=== PATIENT | male | born 1995 | race Caucasian/White ===

== ENCOUNTER 2019-05-12 10:18 | Emergency (ER) | payer OTHER, SELFPAY ==
[2019-05-12 10:22] VITALS: BP 124/82; PULSE 91; RESP 18; TEMP 37; O2SAT 97
--- NOTE | 2019-05-12 10:35 | ED.GENADULT ---
HPI - General Adult General Chief complaint: Nausea/Vomiting/Diarrhea Stated complaint: nausea fever ache Time Seen by Provider: 05/12/19 10:36 Source: patient and RN notes reviewed Mode of arrival: ambulatory Limitations: no limitations History of Present Illness HPI narrative: 24-year-old male with complaints of upper respiratory infection symptoms, congestion, and cough for 2 days. No treatment. Symptoms increased over the past 24 hours with nausea, vomiting, and diarrhea without abdominal pain. Emesis X2 on the night of 05/11/2019 without blood or coffee ground contents none today. Diarrhea soft brown stool X2 on the night of 05/11/2019 without blood, none today. Dry cough with intermittent productive cough (dark phlegm). Rhinorrhea and nasal congestion. Exacerbating factors consist of smoke exposure. No high fevers or chills. No abdominal pain or cramping. Denies chest pain, dyspnea, coughing up blood, difficulty swallowing, jaw pain, dental pain, facial pain, foreign body sensation, and rash. Remains active. Tolerating po intake. Some parts of this dictation were generated by voice recognition software and may contain typographical and/or grammatical inaccuracies. Related Data Allergies Allergy/AdvReac Type Severity Reaction Status Date / Time Penicillins Allergy Unknown Rash Verified 05/12/19 10:26 Review of Systems Review of Systems: Narrative: CONSTITUTIONAL: Denies fever, chills, sweats. EYES: Denies visual changes, redness, discharge. ENT: Complains of rhinorrhea, congestion, LT otalgia. Denies sore throat. CARDIOVASCULAR: Denies chest pain, palpitations, edema. RESPIRATORY: Denies dyspnea, wheezing. Complains of dry cough/intermittent productive. GASTROINTESTINAL: Denies abdominal pain. Complains of nausea, vomiting, diarrhea. GENITOURINARY: Denies dysuria, hematuria, abnormal discharge SKIN: Denies rash or itching. MUSCULOSKELETAL: Denies acute back pain, joint pain. Complains of myalgia. NEUROLOGIC: Denies numbness or focal weakness. PSYCHIATRIC: Denies anxiety or depression. All systems reviewed & are unremarkable except as noted in HPI and below PMFSH Past Medical History Medical History (Updated 05/12/19 @ 10:53 by JEREMIE Leggett) No significant past medical history Surgical History Surgical History (Updated 05/12/19 @ 10:53 by JEREMIE Leggett) No significant past surgical history Family History Family History (Updated 05/12/19 @ 10:54 by JEREMIE Leggett) Other No significant family history Social History Social History (Updated 05/12/19 @ 10:55 by JEREMIE Leggett) Smoking packs per day: 1 Smoking cigarettes per day: 20.0 Years smoked: 3 Smoking pack-years: 3.00 Smoking status: Current every day smoker Tobacco type: cigarettes Alcohol intake: current Alcohol use details: Occasionally Substance use type: marijuana Living arrangements: with family Additional living arrangements comments: Girlfriend and child Occupation/Education: occupation Gender identity (if verbalized by the patient): Male Comments At time of signature, agree with nurse past medical, surgical, social, and family history. There is no relevant family history pertinent to the presenting complaint. Exam Narrative: Exam Narrative: GENERAL: This is a well-nourished, well-developed patient, in no apparent distress. Speaks in full sentences and ambulates with steady gait without dyspnea. HEAD: normocephalic, atraumatic. EYES: PERRL. Sclera clear/white. Vision is grossly intact. EARS: External ears normal, auditory canals clear and without drainage, TMs normal without perforation. Hearing grossly intact. NOSE: External nose normal with no obvious nasal discharge, nares with mild redness and enlarged turbinates, clear rhinorrhea. THROAT: Mucous membranes moist, posterior pharynx with PND, mild erythema, LT small white tonsil stone, no exudate. Tonsils norm
== END 2019-05-12 10:58 | disposition home or self-care (01) ==
PROVIDERS: Emergency Provider Nurse Practitioner Family
DX: B34.9 Viral infection, unspecified (principal); R11.2 Nausea with vomiting, unspecified
CPT/HCPCS: 87804; 99213; G0463

== ENCOUNTER 2020-09-14 09:00 | Emergency (ER) | payer OTHER, SELFPAY ==
[2020-09-14 09:06] VITALS: BP 134/85; PULSE 96; RESP 16; TEMP 37; O2SAT 99
--- NOTE | 2020-09-14 09:33 | ED.GENADULT ---
HPI - General Adult General Chief complaint: Upper Respiratory Infection Stated complaint: Sore Throat Time Seen by Provider: 09/14/20 09:33 Source: patient and RN notes reviewed Mode of arrival: ambulatory Limitations: no limitations History of Present Illness HPI narrative: 25-year-old male presents with complaints of upper respiratory symptoms and sore throat for the past 2 days. ?Navarro reports increasing sore throat throughout the night. Tylenol was taken last this morning with little relief. ?No high fevers, drooling, neck or throat swelling. ?Pain is bilateral. ?Hurts to swallow. ?Exacerbation factors consist of eating and drinking. ?Rhinorrhea and nasal congestion. ?No voice change. ?Cough without chest congestion. ?No nausea, vomiting, or abdominal pain. ?Tolerating liquids well. ?Denies dyspnea, difficulty swallowing, jaw pain, dental pain, facial pain, foreign body sensation, and rash. ?Remains active. ?The patient reports he has not been diagnosed with COVID-19. The patient reports he is not waiting for the results of a COVID-19 lab test. ?The patient reports he does not have chills, weakness, or fatigue. ?The patient reports he does not have any loss of taste or smell and diarrhea. ?Recently travelled to [place] over the past 2 weeks. ?Denies concerns for COVID-19 or exposures. ?At this time, the patient is not suspected of having COVID-19. Some parts of this dictation were generated by voice recognition software and may contain typographical and/or grammatical inaccuracies. Related Data Allergies Allergy/AdvReac Type Severity Reaction Status Date / Time Penicillins Allergy Unknown Rash Verified 09/14/20 09:21 Review of Systems Review of Systems: Narrative: CONSTITUTIONAL: Denies fever, chills, sweats. EYES: Denies visual changes, redness, discharge. ENT: Denies otalgia. Complains of sore throat, rhinorrhea, congestion. CARDIOVASCULAR: Denies chest pain, palpitations, edema. RESPIRATORY: Denies dyspnea, wheezing. Complaints of cough. GASTROINTESTINAL: Denies abdominal pain, nausea, vomiting, diarrhea. GENITOURINARY: Denies dysuria, hematuria, abnormal discharge. SKIN: Denies rash or itching. MUSCULOSKELETAL: Denies acute back pain, joint pain, or myalgia. NEUROLOGIC: Denies numbness or focal weakness. PSYCHIATRIC: Denies anxiety or depression. All systems reviewed & are unremarkable except as noted in HPI and below. [facility] Past Medical History Medical History No significant past medical history Surgical History Surgical History No significant past surgical history Family History Family History (Updated 09/14/20 @ 09:44 by JEREMIE Leggett) Mother No significant family history Alive and well Father Alive and well Social History Social History (Updated 09/14/20 @ 09:45 by JEREMIE Leggett) Smoking packs per day: 1 Smoking cigarettes per day: 20.0 Years smoked: 34 Smoking pack-years: 34.00 Smoking status: Current every day smoker Tobacco type: cigarettes Second hand tobacco smoke exposure: Yes Alcohol intake: current Substance use: current Substance use type: marijuana Living arrangements: with family Additional living arrangements comments: Girlfriend and child Occupation/Education: occupation Gender identity (if verbalized by the patient): Male Sexual Orientation (if Verbalized by the Patient): Straight or Heterosexual Comments At time of signature, agree with the nurse past medical, surgical, social, and family history. There is no relevant family history pertinent to the presenting complaint. Exam Narrative: Exam Narrative: GENERAL: This is a well-nourished, well-developed patient, in no apparent distress. Speaks in full sentences without deficits and ambulates with steady gait without dyspnea. HEAD: Normocephalic, atraumatic. EY
== END 2020-09-14 09:54 | disposition home or self-care (01) ==
PROVIDERS: Emergency Provider Nurse Practitioner Family
DX: J00 Acute nasopharyngitis [common cold] (principal); J01.90 Acute sinusitis, unspecified; Z20.822 Contact with and (suspected) exposure to COVID-19; F17.210 Nicotine dependence, cigarettes, uncomplicated
CPT/HCPCS: 87081; 87147; 87880; 99213; G0463

== ENCOUNTER 2020-11-19 12:50 | Emergency (ER) | payer OTHER, SELFPAY ==
--- NOTE | ~2020-11-19 | XR_ITS ---
EXAMINATION: XR hand RT min 3V DATE: 11/19/2020 13:26 INDICATION: Right hand injury. TECHNIQUE: 3 views of right hand were obtained. COMPARISON: None. FINDINGS: Bone alignment is normal. There are bone fragments at the dorsal aspect of the fifth carpom etacarpal joint. Joint spaces are normal. IMPRESSION: 1. Bone fragments at the dorsal aspect of the fifth carpometacarpal joint, likely acute fractures. Reviewed, dictated and finalized at location B. IMPRESSION: 1. Bone fragments at the dorsal aspect of the fifth carpometacarpal joint, like ly acute fractures.
[2020-11-19 13:05] VITALS: BP 124/61; PULSE 91; RESP 20; TEMP 37.4; O2SAT 99
--- NOTE | 2020-11-19 13:12 | ED.UPPEXIN ---
HPI - Extremity Injury (Upper) General Chief Complaint: Extremity Injury, Upper Stated Complaint: right hand injury Time Seen by Provider: 11/19/20 12:51 Source: patient Mode of arrival: ambulatory Limitations: no limitations History of Present Illness HPI narrative: 25-year-old male presents to [facility] with complaints of pain and swelling to dorsal aspect of his right hand after punching a refrigerator last evening at his home. Patient has not tried taking any [id number] medications for symptoms. Patient denies numbness, tingling, erythema or bruising. MD complaint: injury to: right and hand Onset (ago): hour(s) (12) Handedness: right Place: home Relieving factors: none Exacerbating factors: movement of extremity Context: direct blow Associated symptoms: denies other symptoms Related Data Home Medications Medication Instructions Recorded Confirmed No Home Medications 11/19/20 11/19/20 Allergies Allergy/AdvReac Type Severity Reaction Status Date / Time Penicillins Allergy Unknown Rash Verified 11/19/20 13:13 Review of Systems Constitutional: Constitutional: Denies chills, Denies fever(s) and Denies weakness ENT: Denies sore throat Cardiovascular: Cardiovascular: Denies chest pain, Denies rapid heart rate, Denies radiating jaw, neck or arm pain and Denies slow heart rate Respiratory: Respiratory: Denies cough and Denies dyspnea Musculoskeletal: Comments: Pain and swelling to dorsal aspect of right hand Integumentary/Breasts: Skin/Breast: Denies rash PMFSH Past Medical History Medical History No significant past medical history Surgical History Surgical History No significant past surgical history Family History Family History Mother No significant family history Alive and well Father Alive and well Social History Social History Smoking packs per day: 1 Smoking cigarettes per day: 20.0 Years smoked: 34 Smoking pack-years: 34.00 Smoking status: Current every day smoker Tobacco type: cigarettes Second hand tobacco smoke exposure: Yes Alcohol intake: current Alcohol use details: Occasionally Substance use: current Substance use type: marijuana Additional living arrangements comments: Girlfriend and child Gender identity (if verbalized by the patient): Male Comments At time of signature, I agree with nursing past medical, surgical, social and family history. There is no relevant family history pertinent to the presenting complaint. Exam Const: General: healthy appearing and no acute distress Orientation/consciousness: patient oriented x3 Resp: Effort & Inspection: normal respiratory effort Auscultation: clear to auscultation bilaterally Cardio: Rate: regular rate Rhythm: regular rhythm and regular rhythm Skin: General skin exam: normal color Rashes: no rashes Wounds: no wounds Neuro: General: patient oriented x3 and moves all extremities Extrem: Other: Moderate pain and swelling noted to dorsal aspect of right hand. There is no bruising, erythema or open wounds noted Psych: Mental Status: mental status grossly normal Affect: normal affect Attitude: cooperative Course Vital Signs Vital signs: Vital Signs Temperature 37.4 C 11/19/20 13:05 Pulse Rate 91 11/19/20 13:05 Respiratory Rate 20 11/19/20 13:05 Blood Pressure 124/61 11/19/20 13:05 Pulse Oximetry 99 11/19/20 13:05 Temperature 37.4 C 11/19/20 13:05 Pulse Rate 91 11/19/20 13:05 Respiratory Rate 20 11/19/20 13:05 Blood Pressure 124/61 11/19/20 13:05 Pulse Oximetry 99 11/19/20 13:05 MDM - Extremity Injury (Upper) Imaging Data Radiologist's impression: Fracture of right hand per radiologist Discharge Plan Discharge Cl
== END 2020-11-19 14:02 | disposition home or self-care (01) ==
PROVIDERS: Emergency Provider Nurse Practitioner Family
DX: S62.101A Fracture of unspecified carpal bone, right wrist, initial encounter for closed fracture (principal); W22.8XXA Striking against or struck by other objects, initial encounter; F17.210 Nicotine dependence, cigarettes, uncomplicated
CPT/HCPCS: 29125; 73130; 99214; A4565; G0463

== ENCOUNTER 2021-03-11 14:47 | Emergency (ER) | payer OTHER, SELFPAY ==
--- NOTE | 2021-03-11 14:49 | ED.URI ---
HPI - URI/Sore Throat General Chief Complaint: Upper Respiratory Infection Stated Complaint: Congestion/Sore Throat Time Seen by Provider: 03/11/21 14:49 Source: patient and RN notes reviewed History of Present Illness HPI Narrative: Patient is a 26-year-old male who presents the urgent care with complaints of head congestion/postnasal drainage/rhinorrhea, sore throat and headache. Patient states that started approximately 2 weeks ago and he has been taking Tylenol Cold and flu and Chloraseptic spray to the throat. Patient denies of any exposure to Covid, flu or strep. Denies of fever, chills, nausea, vomiting. No other acute complaints. No acute distress noted. Patient read the plan of care. Some parts of this dictation were generated by voice recognition software and may contain typographical and/or grammatical inaccuracies. Related Data Allergies Allergy/AdvReac Type Severity Reaction Status Date / Time Penicillins Allergy Unknown Rash Verified 03/11/21 15:04 Review of Systems Review of Systems: CONSTITUTIONAL: Denies fever, chills, or sweats. EYES: Denies visual changes, redness, or discharge. ENT: Reports of sore throat, congestion, postnasal drainage and rhinorrhea CARDIOVASCULAR: Denies chest pain, palpitations, or edema. RESPIRATORY: Reports of cough without dyspnea GASTROINTESTINAL: Denies abdominal pain, nausea, vomiting, or diarrhea. GENITOURINARY: Denies dysuria or hematuria. SKIN: Denies rash or itching. MUSCULOSKELETAL: Denies back pain, joint pain, or myalgia. NEUROLOGIC: Reports of a headache All other systems reviewed are negative, except as documented in HPI. [facility] Past Medical History Medical History No significant past medical history Surgical History Surgical History No significant past surgical history Family History Family History Mother No significant family history Alive and well Father Alive and well Social History Social History (Updated 11/25/20 @ 13:07 by Amparo Benavides MA) Smoking packs per day: 1 Smoking cigarettes per day: 20.0 Years smoked: 34 Smoking pack-years: 34.00 Smoking status: Current every day smoker Tobacco type: cigarettes Second hand tobacco smoke exposure: Yes Alcohol intake: current Alcohol use details: Approx. 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 There is no relevant family history pertinent to the patient complaint. Exam Narrative: GENERAL: This is a well-nourished, well-developed patient, in no apparent distress. HEAD: normocephalic, atraumatic. EYES: PERRL. Sclera clear/white. Vision is grossly intact. EARS: External ears normal, auditory canals clear and without drainage, TMs normal without perforation. Hearing grossly intact. NOSE: External nose normal with no obvious nasal discharge. Mild bilateral erythemic nares with clear yellow rhinorrhea THROAT: Mucous membranes moist. Mild erythema noted posterior oropharynx with moderate postnasal drainage. NECK: Neck supple CARDIOVASCULAR: Regular rate and rhythm without murmurs, gallops, or rubs. RESPIRATORY: Clear to auscultation. Breath sounds equal bilaterally. No wheezes, rales, or rhonchi. SKIN: warm, intact with no suspicious lesions or rash, good texture and turgor. NEURO: awake, alert, and oriented to person, place and time. There were no obvious focal neurologic abnormalities. EXTREMITIES: No cl
[2021-03-11 14:55] VITALS: BP 140/83; PULSE 66; RESP 18; TEMP 36.9; O2SAT 98
== END 2021-03-11 15:20 | disposition home or self-care (01) ==
PROVIDERS: Emergency Provider Nurse Practitioner Family
DX: J32.9 Chronic sinusitis, unspecified (principal); F17.210 Nicotine dependence, cigarettes, uncomplicated
CPT/HCPCS: 87081; 87880; 99213; G0463

== ENCOUNTER 2021-09-06 11:12 | Emergency (ER) | payer OTHER, SELFPAY ==
[2021-09-06 11:18] VITALS: BP 129/79; PULSE 79; RESP 18; TEMP 37.4; O2SAT 100
--- NOTE | 2021-09-06 11:21 | ED.UPPEXIN ---
HPI - Extremity Injury (Upper) General Chief Complaint: Extremity Injury, Upper Stated Complaint: chest and shoulder pain Time Seen by Provider: 09/06/21 11:22 Source: patient and RN notes reviewed History of Present Illness HPI narrative: Patient is a 26-year-old male who presents the urgent care with complaints of left chest and shoulder pain. 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 Patient states that started approximately 4 to 5 days ago. Patient is right-hand dominant. Denies of any fall, trauma or known injury to the upper back. Patient denies any shortness of breath. Denies of any heart history. States that he took ibuprofen a couple times for the pain. No other acute complaints. No acute distress noted. Patient aware of the plan of care. Some parts of this dictation were generated by voice recognition software and may contain typographical and/or grammatical inaccuracies. Related Data Allergies Allergy/AdvReac Type Severity Reaction Status Date / Time Penicillins Allergy Mild Hives Verified 09/06/21 11:24 Review of Systems Review of Systems: CONSTITUTIONAL: Denies fever, chills, or sweats. EYES: Denies visual changes, redness, or discharge. ENT: Denies rhinorrhea, congestion, sore throat, or otalgia. CARDIOVASCULAR: Denies chest pain, palpitations, or edema. RESPIRATORY: Denies cough or dyspnea. GASTROINTESTINAL: Denies abdominal pain, nausea, vomiting, or diarrhea. GENITOURINARY: Denies dysuria or hematuria. SKIN: Denies rash or itching. MUSCULOSKELETAL: Reports of left posterior shoulder pain radiating to the anterior chest NEUROLOGIC: Denies headache, numbness, or weakness. All other systems reviewed are negative, except as documented in HPI. [facility] Past Medical History Medical History No significant past medical history Surgical History Surgical History No significant past surgical history Family History Family History Mother No significant family history Alive and well Father Alive and well Social History Social History (Updated 11/25/20 @ 13:07 by Amparo Benavides MA) Smoking packs per day: 1 Smoking cigarettes per day: 20.0 Years smoked: 34 Smoking pack-years: 34.00 Smoking status: Current every day smoker Tobacco type: cigarettes Second hand tobacco smoke exposure: Yes Alcohol intake: current Alcohol use details: Approx. 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 There is no relevant family history pertinent to the patient complaint. Exam Narrative: GENERAL: This is a well-nourished, well-developed patient, in no apparent distress. HEAD: normocephalic, atraumatic. EYES: PERRL. Sclera clear/white. Vision is grossly intact. EARS: External ears normal NOSE: External nose normal with no obvious nasal discharge, nares without redness, no rhinorrhea. THROAT: Mucous membranes moist NECK: Neck supple CARDIOVASCULAR: Regular rate and rhythm without murmurs, gallops, or rubs. RESPIRATORY: Clear to auscultation. Breath sounds equal bilaterally. No wheezes, rales, or rhonchi. SKIN: warm, intact with no suspicious lesions or rash, good texture and turgor. NEURO: awake, alert, and oriented to person, place and time. There were no obvious focal neurologic abnormalities. EXTREMITIES: Left posterior shoulder/scapular tenderne
--- NOTE | 2021-09-06 11:48 | ECG_ITS ---
Rate 72 RI 135 QRSd 85 QT 382 QTc 419 --[place]-- P 61 QRS 86 T 56 SINUS RHYTHM NO PREVIOUS ECG AVAILABLE FOR COMPARISON Electronically Signed On 09-06-2021 15:35:14 CDT by Dontae Pal MD MTDD
== END 2021-09-06 11:55 | disposition home or self-care (01) ==
PROVIDERS: Emergency Provider Nurse Practitioner Family
DX: S46.912A Strain of unspecified muscle, fascia and tendon at shoulder and upper arm level, left arm, initial encounter (principal); X58.XXXA Exposure to other specified factors, initial encounter; F17.210 Nicotine dependence, cigarettes, uncomplicated
CPT/HCPCS: 93005; 99213; G0463

== ENCOUNTER 2021-10-02 15:34 | Emergency (ER) | payer OTHER, SELFPAY ==
[2021-10-02 15:44] VITALS: BP 133/77; PULSE 70; RESP 18; TEMP 37.2; O2SAT 100
--- NOTE | 2021-10-02 15:45 | ED.SKABFB ---
HPI - Skin/Abscess/Foreign Bdy General Chief complaint: Skin/Abscess/Foreign Body Stated complaint: Bee Sting Time Seen by Provider: 10/02/21 15:46 Source: patient Mode of arrival: ambulatory Limitations: no limitations History of Present Illness HPI narrative: 26-year-old male presented for complaint of bee sting to the left hand between the fourth and fifth knuckles about 5 hours prior to arrival. Endorses swelling and pain to the site. Denies lip, tongue, or throat swelling, shortness of breath or wheezing. States the knuckles feel tender. Has not taken anything for symptoms. He did wash the site. Denies significant allergic reaction to bees in the past. MD complaint: rash Related Data Allergies Allergy/AdvReac Type Severity Reaction Status Date / Time Penicillins Allergy Mild Hives Verified 10/02/21 15:39 Review of Systems Review of Systems: CONSTITUTIONAL: Denies body aches, fever, chills, or sweats. EYES: Denies visual changes, redness, or discharge. ENT: Denies rhinorrhea, congestion, sore throat, or otalgia. CARDIOVASCULAR: Denies chest pain, palpitations, or edema. RESPIRATORY: Denies cough or dyspnea. GASTROINTESTINAL: Denies abdominal pain, nausea, vomiting, or diarrhea. SKIN: Reports itching, pain, swelling to left hand MUSCULOSKELETAL: Denies back pain, joint pain, or myalgia. NEUROLOGIC: Denies headache, numbness, tingling, or weakness. PSYCH: Denies depression or anxiety. [facility] Past Medical History Medical History No significant past medical history Surgical History Surgical History No significant past surgical history Family History Family History Mother No significant family history Alive and well Father Alive and well Social History Social History Smoking packs per day: 1 Smoking cigarettes per day: 20.0 Years smoked: 34 Smoking pack-years: 34.00 Smoking status: Current every day smoker Tobacco type: cigarettes Second hand tobacco smoke exposure: Yes Alcohol intake: current Alcohol use details: Approx. 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 Please see nursing chart for further information. There is no relevant family history pertinent to the presenting complaint Exam Narrative: GENERAL: Well-appearing EYES: conjunctivae clear, and EOMI. ENT: Mucous membranes moist. Oropharynx without edema, erythema or lesions. NECK: Supple. No lymphadenopathy CHEST: Clear to auscultation. No respiratory distress. HEART: Regular rate and rhythm. SKIN: Warm, dry. Left hand dorsal surface with moderate swelling over the area of the fourth and fifth metacarpals NEURO: Alert and oriented x3. PSYCH: Normal mood and affect Course Course Emergency Course: Patient is aware of diagnosis, understands and agrees to treatment plan. Anticipatory guidance given. Patient agrees to follow-up as directed and is aware of reasons to seek care at the emergency department. Portions of this record may have been created with voice recognition software Level of Care: Express Care Visit Vital Signs Vital signs: Vital Signs Temperature 99.0 F 10/02/21 15:44 Pulse Rate 70 10/02/21 15:44 Respiratory Rate 18 10/02/21 15:44 Blood Pressure 133/77 10/02/21 15:44 Pulse Oximetry 100 10/02/21 15:44 Oxygen Delivery
[2021-10-02] MEDS: diphenhydrAMINE HCl CAP 25 MG CAPSULE PO (16:05)
[2021-10-02] MEDS: predniSONE 20 MG TABLET 40 MG PO (16:05)
== END 2021-10-02 16:08 | disposition home or self-care (01) ==
PROVIDERS: Emergency Provider Nurse Practitioner Family
DX: T63.441A Toxic effect of venom of bees, accidental (unintentional), initial encounter (principal); F17.210 Nicotine dependence, cigarettes, uncomplicated
CPT/HCPCS: 99213; A9270; G0463; J7512

== ENCOUNTER 2021-10-20 14:58 | Emergency (ER) | payer OTHER, SELFPAY ==
[2021-10-20 15:03] VITALS: BP 127/78; PULSE 80; RESP 17; TEMP 36.6; O2SAT 99
[2021-10-20 15:29] VITALS: BP 117/82; PULSE 87; RESP 15; O2SAT 98
[2021-10-20] MEDS: diphenhydrAMINE HCl INJ 50 MG/ML VIAL IV PUSH (15:34)
[2021-10-20] MEDS: methylPREDNISolone SOD SUCC 125 MG VIAL IV PUSH (15:34)
[2021-10-20] MEDS: FAMOTIDINE 20 MG/2 ML VIAL IV PUSH (15:34)
--- NOTE | 2021-10-20 15:34 | ED.GENADULT ---
HPI - General Adult General Chief complaint: Allergic Reaction Stated complaint: multiple bee stings, allergic to bees Time Seen by Provider: 10/20/21 15:07 History of Present Illness HPI narrative: 26-year-old male with history of allergy to bee stings presents to the emergency department after having multiple wasp stings to his lower legs today. Patient does have 2 areas of erythema to his lower legs. Patient has no chest pain or shortness of breath. Patient has no facial swelling or difficulty breathing or swallowing. Related Data Allergies Allergy/AdvReac Type Severity Reaction Status Date / Time Penicillins Allergy Mild Hives Verified 10/20/21 15:06 [facility] Past Medical History Medical History No significant past medical history Surgical History Surgical History No significant past surgical history Family History Family History Mother No significant family history Alive and well Father Alive and well Social History Social History Smoking packs per day: 1 Smoking cigarettes per day: 20.0 Years smoked: 34 Smoking pack-years: 34.00 Smoking status: Current every day smoker Tobacco type: cigarettes Second hand tobacco smoke exposure: Yes Alcohol intake: current Alcohol use details: Approx. 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 HEAD: normocephalic, atraumatic. EYES: PERRLA/EOMI, conjunctivae clear. NOSE: Normal no drainage EARS:TMS clear with good light reflex. THROAT: Pharynx clear, no exudate. NECK: Supple. No adenopathy, no masses. RESPIRATORY: Airway patent, respirations nonlabored. Clear to auscultation bilaterally, no rales, rhonchi, wheezing. CARDIOVASCULAR: Regular rate and rhythm without murmurs rubs or gallops. ABDOMINAL: Soft, nontender, nondistended, normal bowel sounds MUSCULOSKELETAL: Moves all extremities. Strength/ROM intact, No edema, No calf tenderness. NEURO: Alert. Cranial nerves II through XII intact. Grossly intact SKIN: 2 areas of erythema on the lower extremities that are the sites of the wasp stings. Course Course Emergency Course: Patient was treated with 125 mg IV Solu-Medrol, 25 mg of IV Benadryl, IV famotidine and a liter normal saline. Patient was observed in the emergency department for 1 hour after treatment. Patient had no further worsening symptoms. Patient was discharged with a prescription for prednisone. Vital Signs Vital signs: Vital Signs Temperature 98 F 10/20/21 15:03 Pulse Rate 80 10/20/21 15:03 Respiratory Rate 17 10/20/21 15:03 Blood Pressure 127/78 10/20/21 15:03 Pulse Oximetry 99 10/20/21 15:03 Oxygen Delivery Room Air 10/20/21 15:03 Temperature 98 F 10/20/21 15:03 Pulse Rate 71 10/20/21 16:23 Respiratory Rate 17 10/20/21 16:23 Blood Pressure 102/85 10/20/21 16:23 Pulse Oximetry 100 10/20/21 16:23 Oxygen Delivery Room Air 10/20/21 15:03 Medical Decision Making Vital Signs Vital Signs: Vital Signs Temperature 98 F 10/20/21 15:03 Pulse Rate 80 10/20/21 15:03 Respiratory Rate 17 10/20/21 15:03 Blood Pressure 127/78 10/20/21 15:03 Pulse Oximetry 99 10/20/21 15:03 Oxygen Delivery Room Air 10/20/21 15:03 Temperature 98 F 10/20/21 15:03 Pulse Rate 71 10/20/21 16:23 Respiratory Rate 17 10/20/21 16:23 Blood Pressure 102/85 10/20/21 16:23 Pulse Oximet
[2021-10-20 16:23] VITALS: BP 102/85; PULSE 71; RESP 17; O2SAT 100
== END 2021-10-20 16:24 | disposition home or self-care (01) ==
PROVIDERS: Emergency Provider Emergency Medicine
DX: T63.461A Toxic effect of venom of wasps, accidental (unintentional), initial encounter (principal)
CPT/HCPCS: 96374; 96375; 99284; J1200; J2930

== ENCOUNTER 2022-01-21 16:33 | Emergency (ER) | payer OTHER, SELFPAY ==
[2022-01-21 16:37] VITALS: BP 134/83; PULSE 73; RESP 16; TEMP 36.6; O2SAT 100
--- NOTE | 2022-01-21 16:50 | ED.URI ---
HPI - URI/Sore Throat General Chief Complaint: Upper Respiratory Infection Stated Complaint: congestion sore throat Time Seen by Provider: 01/21/22 16:50 Source: patient, RN notes reviewed and old records reviewed Mode of arrival: ambulatory Limitations: no limitations History of Present Illness HPI Narrative: 26-year-old male who presents to [facility] care with complaints of sore throat, nasal congestion and drainage in the morning, cough with expectoration of green mucous for one week duration. Patient report that he has been taking Claritin for his symptoms. Patient denies any known fevers chills or sweats, denies any body aches or any shortness of breath. He reports that he has taken some Claritin for his symptoms. MD elicited complaint: cough, sore throat and nasal congestion Pertinent past history: other (sinus problems and strep) Onset (ago): week(s) (1) Pain scale (0-10): 4 Treatments prior to arrival: other (claritin) Related Data Allergies Allergy/AdvReac Type Severity Reaction Status Date / Time Penicillins Allergy Mild Hives Verified 01/21/22 16:41 Review of Systems Review of Systems: CONSTITUTIONAL: Denies malaise, chills, sweats, or fever. Claritin EYES: Denies visual changes, redness, or discharge. ENT: Reports rhinorrhea, congestion, no sinus pain,or otalgia positive for sore throat. CARDIOVASCULAR: Denies chest pain, palpitations, or edema. RESPIRATORY: Reports cough.? Denies dyspnea. GASTROINTESTINAL: Denies abdominal pain, nausea, vomiting, diarrhea SKIN: Denies rash or itching. MUSCULOSKELETAL: Denies myalgia. NEUROLOGIC: Denies headache. All systems reviewed & are unremarkable except as noted in HPI and below PMFSH Past Medical History Medical History (Updated 01/23/22 @ 19:41 by Bridget Rojas NP) Fracture of right upper extremity History of sinus problem Strep pharyngitis Surgical History Surgical History (Updated 01/23/22 @ 19:41 by Bridget Rojas NP) History of placement of ear tubes Family History Family History Mother No significant family history Alive and well Father Alive and well Social History Social History (Updated 01/23/22 @ 19:44 by Bridget Rojas NP) Smoking packs per day: 1 Smoking cigarettes per day: 20.0 Years smoked: 7 Smoking pack-years: 7.00 Smoking status: Current every day smoker Tobacco type: cigarettes Second hand tobacco smoke exposure: Yes Alcohol intake: current Alcohol use details: Approx. 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 There is no relevant family history pertinent to the presenting complaint Exam Narrative: GENERAL: Well-appearing, well-nourished, and in no acute distress. HEAD: Normocephalic EYES: PERRLA, conjunctivae clear ENT: Nares clear, turbinates edematous and erythematous, clear discharge. Mucous membranes moist. TM pearly durand with dull light reflex bilaterally; no tragal tenderness. Oropharynx erythematous without lesions. Tonsils not enlarged and without exudate, no drooling, no hoarseness, no trismus, uvula midline. NECK: Supple. No lymphadenopathy CHEST: Clear to auscultation, breath sounds equal. No wheezing, rhonchi, rales, or stridor. No respiratory distress, speaks in full sentences.productive cough SAO2 100% on room air HEART: Regular rate and rhythm. No murmur heard. SKIN: Warm, dry, no rash. NEURO: Alert and oriented x3. PSYCH: Normal mood and affect Course Course Emergency Course: Patient is aware of
== END 2022-01-21 17:16 | disposition home or self-care (01) ==
PROVIDERS: Emergency Provider Registered Nurse
DX: J06.9 Acute upper respiratory infection, unspecified (principal); J02.9 Acute pharyngitis, unspecified; F17.210 Nicotine dependence, cigarettes, uncomplicated; F12.90 Cannabis use, unspecified, uncomplicated
CPT/HCPCS: 87081; 87880; 99213; G0463

== ENCOUNTER 2022-02-21 11:16 | Emergency (ER) | payer OTHER, SELFPAY ==
--- NOTE | ~2022-02-21 | XR_ITS ---
EXAMINATION: [id number] DATE: 02/21/2022 11:48 INDICATION: Right rib pain TECHNIQUE: A frontal inspiratory view of the chest and 3 views of the right ribs were obtained. COMPARISON: None FINDINGS: No rib fractures identified. No pneumothorax. No focal infiltrates, pleural effusion or pulmonary ty ma. Cardiomediastinal silhouette is normal. 18 degree lumbar dextroscoliosis and 6 degrees upper tho racic levocurvature. IMPRESSION: 1. No rib fracture or acute cardiopulmonary disease. Reviewed, dictated and finalized at location A. NG DESIGNER
[2022-02-21 11:22] VITALS: BP 139/97; PULSE 95; RESP 16; TEMP 36.7; O2SAT 99
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
== END 2022-02-21 12:14 | disposition home or self-care (01) ==
PROVIDERS: Emergency Provider Nurse Practitioner
DX: S20.221A Contusion of right back wall of thorax, initial encounter (principal); F17.210 Nicotine dependence, cigarettes, uncomplicated; Y04.0XXA Assault by unarmed brawl or fight, initial encounter
CPT/HCPCS: 71101; 99213; G0463

== ENCOUNTER 2022-03-08 11:23 | Emergency (ER) | payer OTHER, SELFPAY ==
[2022-03-08 11:28] VITALS: BP 126/76; PULSE 74; RESP 18; TEMP 36.8; O2SAT 99
--- NOTE | 2022-03-08 12:45 | ED.NAVMDI ---
HPI - Nausea/Vomiting/Diarrhea General Chief complaint: Nausea/Vomiting/Diarrhea Stated complaint: Vomiting Time Seen by Provider: 03/08/22 12:45 Source: patient and RN notes reviewed Mode of arrival: ambulatory Limitations: no limitations History of Present Illness HPI Narrative: 27 y/o male presented for complaints of nausea, vomiting, diarrhea, onset 3 days. He endorses symptoms are improving today after taking his grandmother's Bentyl. He currently denies abdominal pain, shortness of breath, wheezing, fevers or chills. Related Data Allergies Allergy/AdvReac Type Severity Reaction Status Date / Time Penicillins Allergy Mild Hives Verified 03/08/22 11:34 Review of Systems Review of Systems: CONSTITUTIONAL: Denies body aches, fever, chills ENT: Denies rhinorrhea, congestion CARDIOVASCULAR: Denies chest pain, palpitations, or edema. RESPIRATORY: Denies cough or dyspnea. GASTROINTESTINAL: Denies hematochezia, melena, hematemesis GENITOURINARY: Denies dysuria, hematuria, or CVA tenderness. SKIN: Denies rash, itching, or wounds. MUSCULOSKELETAL: Denies back pain, joint pain, or myalgia. NEUROLOGIC: Denies headache, numbness, tingling, or weakness. All systems reviewed & are unremarkable except as noted in HPI and below PMFSH Past Medical History Medical History Fracture of right upper extremity History of sinus problem Strep pharyngitis Surgical History Surgical History History of placement of ear tubes Family History Family History Mother No significant family history Alive and well Father Alive and well Social History Social History Smoking packs per day: 1 Smoking cigarettes per day: 20.0 Years smoked: 7 Smoking pack-years: 7.00 Smoking status: Current every day smoker Tobacco type: cigarettes Second hand tobacco smoke exposure: Yes Alcohol intake: current Alcohol use details: Approx. 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 Please see nursing chart for further information. There is no relevant family history pertinent to the presenting complaint Exam Narrative: GENERAL: Well-appearing, and in no acute distress. EYES: EOMI. Conjunctivae normal. ENT: Mucous membranes pink and moist. CHEST: No respiratory distress. Clear to auscultation. HEART: Regular rate and rhythm. No murmur appreciated. Normal peripheral pulses. ABDOMEN: abd soft, nondistended, normal active bowel sounds. nontender abdomen, No guarding EXTREMITIES: Normal range of motion. No edema. SKIN: Warm, dry, no rash. Capillary refill normal. Normal skin turgor. NEURO: No focal deficits. Alert and oriented x3. PSYCH: Normal affect. Course Course Emergency Course: Patient is aware of diagnosis, understands and agrees to treatment plan. Anticipatory guidance given. Patient agrees to follow-up as directed and is aware of reasons to seek care at the emergency department. Portions of this record may have been created with voice recognition software Level of Care: Express Care Visit Vital Signs Vital signs: Vital Signs Temperature 98.2 F 03/08/22 11:28 Pulse Rate 74 03/08/22 11:28 Respiratory Rate 18 03/08/22 11:28 Blood Pressure 126/76 03/08/22 11:28 Pulse Oximetry 99 03/08/22 11:28 Oxygen Delivery Room Air 03/08/22 11:
== END 2022-03-08 12:53 | disposition home or self-care (01) ==
PROVIDERS: Emergency Provider Nurse Practitioner Family
DX: R11.2 Nausea with vomiting, unspecified (principal); R19.7 Diarrhea, unspecified; F17.210 Nicotine dependence, cigarettes, uncomplicated
CPT/HCPCS: 99211; G0463

== ENCOUNTER 2023-12-05 18:36 | Emergency (ER) | payer OTHER, SELFPAY ==
--- NOTE | 2023-12-05 18:39 | ED.GENADULT ---
HPI - General Adult General Chief complaint: Chest Pain Stated complaint: says his heart hurts Time Seen by Provider: 12/05/23 19:15 Source: patient, RN notes reviewed and old records reviewed Mode of arrival: ambulatory Limitations: no limitations History of Present Illness HPI narrative: 28-year-old male presents to the [facility] with complaints of chest pressure, feels like his heart is not beating correctly. Patient states has been getting worse over the last 2 days. Patient denies shortness of breath. Smoked marijuana approximately 1 hour prior to arrival. States that smoking marijuana does not make his symptoms better or worse Discussed transfer to the nearest ER which patient is declining. Onset (ago): day(s) (2) Related Data Home Medications Medication Instructions Recorded Confirmed No Home Medications 12/05/23 12/05/23 Allergies Allergy/AdvReac Type Severity Reaction Status Date / Time Penicillins Allergy Mild Hives Verified 12/05/23 19:15 Review of Systems Review of Systems: All systems reviewed & are unremarkable except as noted in HPI and below Constitutional: Constitutional: Reports no additional constitutional complaints Eyes: Eyes: Reports no additional eye complaints ENT: Reports system reviewed and no additional complaints, except as documented Cardiovascular: Cardiovascular: Reports as per HPI, Reports chest pain and Denies dyspnea Respiratory: Respiratory: Reports no additional respiratory complaints, Denies chest congestion, Denies cough and Denies dyspnea Gastrointestinal: Gastrointestinal: Reports no additional gastrointestinal complaints, Denies abdominal pain, Denies nausea and Denies vomiting Musculoskeletal: Musculoskeletal: Reports no additional musculoskeletal complaints Integumentary/Breasts: Skin/Breast: Reports system reviewed and no additional complaints, except as docu Neurologic: Reports system reviewed and no additional complaints, except as documented Psychiatric: Psychiatric: Reports no additional psychiatric complaints Allergic/Immunologic: Allergic/Immunologic: Reports no additional allergic/immunologic complaints [facility] Past Medical History Medical History Fracture of right upper extremity History of sinus problem Strep pharyngitis Surgical History Surgical History History of placement of ear tubes Family History Family History Mother No significant family history Alive and well Father Alive and well Social History Social History Smoking packs per day: 1 Smoking cigarettes per day: 20.0 Years smoked: 7 Smoking pack-years: 7.00 Smoking status: Current every day smoker Tobacco type: cigarettes Second hand tobacco smoke exposure: Yes Alcohol intake: current Alcohol use details: Approx. 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 There is no relevant family history pertinent to the patient complaint. Exam Const: General: cooperative, healthy appearing, comfortable, no acute distress, well developed, alert and well nourished Nutritional Appearance: well nourished Orientation/consciousness: patient oriented x3 Limitations: no limitations HENMT: Head: normal to inspection Ears: hearing grossly normal bilaterally and externa
[2023-12-05 18:44] VITALS: BP 130/79; PULSE 96; RESP 20; TEMP 37.4; O2SAT 100
--- NOTE | 2023-12-05 18:52 | ECG_ITS ---
Test Date: 2023-12-05 18:55:43 Measurements Intervals [place] Rate: 88 P: 56 [place]: 132 QRS: 84 QRSD: 82 T: 60 QT: 335 QTc: 405 Interpretive Statements SINUS RHYTHM NORMAL ECG No previous ECG available for comparison Electronically Signed On 12-06-2023 06:35:02 CDT by Nikunj Patel D.O.
== END 2023-12-05 19:22 | disposition left against medical advice (07) ==
PROVIDERS: Emergency Provider Nurse Practitioner
DX: R07.89 Other chest pain (principal); F17.210 Nicotine dependence, cigarettes, uncomplicated; F12.90 Cannabis use, unspecified, uncomplicated
CPT/HCPCS: 93005; 99213; G0463

== ENCOUNTER 2024-04-16 18:00 | Emergency (ER) | payer OTHER, SELFPAY ==
--- NOTE | 2024-04-16 18:02 | ED.MALEGU ---
HPI - Male Genitourinary General Chief complaint: Urogenital-Male Stated complaint: Urinary Problem/Back Pain Time Seen by Provider: 04/16/24 18:10 Source: patient and RN notes reviewed Mode of arrival: ambulatory Limitations: no limitations History of Present Illness HPI Narrative: 29-year-old male presents concern for 2 day history of dysuria, left lower quadrant pain, left low back pain, urgency. He denies hematuria. He denies fever, aches, chills, sweats, nausea, vomiting. Denies concern for STDs Related Data Allergies Allergy/AdvReac Type Severity Reaction Status Date / Time Penicillins Allergy Mild Hives Verified 12/05/23 19:15 Review of Systems Review of Systems: CONSTITUTIONAL: Denies malaise, chills, sweats, or fever. CARDIOVASCULAR: Denies chest pain, palpitations, or edema. RESPIRATORY: Denies cough or dyspnea. GASTROINTESTINAL: Denies abdominal pain, nausea, vomiting, diarrhea GENITOURINARY: Reports dysuria, frequency, urgency, left lower quadrant discomfort. Reports left flank pain SKIN: Denies rash or itching. MUSCULOSKELETAL: Denies back pain or myalgia. All systems reviewed & are unremarkable except as noted in HPI and below PMFSH Past Medical History Medical History Fracture of right upper extremity History of sinus problem Strep pharyngitis Surgical History Surgical History History of placement of ear tubes Family History Family History Mother No significant family history Alive and well Father Alive and well Social History Social History Smoking packs per day: 1 Smoking cigarettes per day: 20.0 Years smoked: 7 Smoking pack-years: 7.00 Smoking status: Current every day smoker Tobacco type: cigarettes Second hand tobacco smoke exposure: Yes Alcohol intake: current Alcohol use details: Approx. 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 There is no relevant family history pertinent to the presenting complaint Exam Narrative: GENERAL: Well-appearing, well-nourished, and in no acute distress. HEAD: Normocephalic. EYES: PERRLA, conjunctivae clear. NECK: Supple. No lymphadenopathy CHEST: Clear to auscultation. No respiratory distress. HEART: Regular rate and rhythm. ABDOMEN: Soft, nontender upon palpation, nondistended, normal active bowel sounds, no palpable or pulsatile masses, no guarding. Left CVA tenderness SKIN: Warm, dry, no rash. NEURO: Alert and oriented x3. PSYCH: Normal mood and affect Course Course Emergency Course: Patient is aware of diagnosis, understands and agrees to treatment plan. Anticipatory guidance given. Patient agrees to follow-up as directed and is aware of reasons to seek care at the emergency department. Portions of this record may have been created with voice recognition software Level of Care: Express Care Visit Vital Signs Vital signs: Reviewed. Critical Care Time Critical Care Time Critical Care Time: No Discharge Plan Discharge Clinical Impression: Urinary tract infection Patient Disposition: Home, Self-Care Condition: Stable Instructions: Antibiotic Form, Urinary Tract Infection in Men (ED) Additional Instructions: We will send a urine culture to the lab; if the culture identifies an organism that the prescribed antibiotic will not treat, you will receive a phone call from an urgent care staff member and an appropriate antibiotic will be prescribed. -Your symptoms should begin to improve within a day of starting antibiotics. But you should finish all the antibiotic pills you get. Otherwise your infection might come back. -Also recommend: increase water intake. Tylenol/ibuprofen as needed for pain or fever -Follow-up with your primary care provider for urine recheck or seek ER visit if condition worsens with high fever, nausea, vomiting and severe back pain. Patient Language: Kazakh Prescriptions: New ciprofloxacin HCl 500 mg tablet 500 mg PO Q12H 7 Days Qty: 14 0RF Follow-up/Referrals: UNKNOWN,DOCTOR [Non-Staff] - Time of Disposition: 18:20
[2024-04-16 18:09] VITALS: BP 144/96; PULSE 82; RESP 16; TEMP 36.7; O2SAT 100
[2024-04-16 18:18] LABS: EDUAAPPEAR Cloudy; EDUABILI 1+ (Negative); EDUABLOOD 2+ (Negative); EDUACOLOR1 Amber; EDUAGLUCOSE Negative (Negative); EDUAKETONE Negative (Negative); EDUALEUKO Trace (Negative); EDUANITRATE Negative (Negative); EDUAPROTEIN 1+ (Negative); EDUAUROBILI 0.2
== END 2024-04-16 18:24 | disposition home or self-care (01) ==
PROVIDERS: Emergency Provider Nurse Practitioner
DX: N39.0 Urinary tract infection, site not specified (principal); F17.210 Nicotine dependence, cigarettes, uncomplicated
CPT/HCPCS: 81003; 87086; 99213; G0463